=== PATIENT | female | born 1975 | race Caucasian/White ===

== ENCOUNTER 2017-09-24 18:52 | Emergency (ER) | payer OTHER, BC ==
[2017-09-24] MEDS ORDERED: MORPHINE SULFATE 10 MG/ML INJ IV ONE ×2 (19:46→22:13)
[2017-09-24] MEDS ORDERED: ONDANSETRON HCL INJ/PF 4 MG/2 ML SDV IV ONE (19:46)
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
[2017-09-24] MEDS ORDERED: ACETAMINOPHEN 325 MG TABLET PO ONE (20:56)
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
[2017-09-24 22:25] VITALS: BP 143/92
[2017-09-24] MEDS ORDERED: DIPHENHYDRAMINE HCL 50 MG/ML VIAL IV ONE (22:31)
== END 2017-09-24 23:00 | disposition home or self-care (01) ==
LOC: ER 18:52
DX: S06.0X0A Concussion without loss of consciousness, initial encounter (principal); S20.219A Contusion of unspecified front wall of thorax, initial encounter; S00.03XA Contusion of scalp, initial encounter; V49.40XA Driver injured in collision with unspecified motor vehicles in traffic accident, initial encounter; M79.602 Pain in left arm; M54.2 Cervicalgia; R10.9 Unspecified abdominal pain; R07.81 Pleurodynia; J32.0 Chronic maxillary sinusitis; R23.2 Flushing; Z88.5 Allergy status to narcotic agent; Z88.1 Allergy status to other antibiotic agents
CPT/HCPCS: 99285; 96374; 96375; 82962; 81025; 73060; 70450; 71260; 72125; 74177; J1200; J2270; J2405